=== PATIENT | female | born 1975 | race Caucasian/White ===

== ENCOUNTER 2018-06-25 05:37 | Day surgery (SDC) | payer OTHER ==
[2018-06-25] MEDS ORDERED: LIDOCAINE 2% (SDV) 5 ML INJ (06:26)
[2018-06-25] MEDS ORDERED: ROCURONIUM 50 MG INJ (06:26)
[2018-06-25] MEDS ORDERED: MIDAZOLAM 1 MG/ML 2 ML INJ (06:27)
[2018-06-25] MEDS ORDERED: GLYCOPYRROLATE 0.4 MG INJ (06:27)
[2018-06-25] MEDS ORDERED: PROPOFOL 20 ML (06:27)
[2018-06-25] MEDS ORDERED: FENTAnyl 50 MCG/ML VIAL (06:27)
[2018-06-25] MEDS ORDERED: NEOSTIGMINE 3 MG/3 ML SYRINGE (06:27)
[2018-06-25] MEDS ORDERED: ONDANSETRON 4 MG INJ (06:29)
[2018-06-25] MEDS ORDERED: DEXAMETHASONE 4 MG/ML 1 ML INJ (06:29)
[2018-06-25] MEDS ORDERED: hydrALAzine 20 MG INJ IV (06:30)
[2018-06-25] MEDS ORDERED: LABETALOL HCL 20MG INJ IV (06:30)
[2018-06-25] MEDS ORDERED: FENTAnyl 50 MCG/ML VIAL IV (06:30)
[2018-06-25] MEDS ORDERED: OXYCODONE/ACETAMINOPHEN (5/325) TAB PO (06:30)
[2018-06-25] MEDS ORDERED: morphine (1 MG/ML) 10ML SYRINGE IV ×3 (06:30)
[2018-06-25] MEDS ORDERED: DIPHENHYDRAMINE 50 MG INJ IV (06:30)
[2018-06-25] MEDS ORDERED: MEPERIDINE 25 MG INJ IV (06:30)
[2018-06-25] MEDS ORDERED: ATROPINE 1 MG/10 ML SYRINGE IV (06:30)
[2018-06-25] MEDS ORDERED: EPHEDrine SULFATE 50 MG/5 ML SYG IV (06:30)
[2018-06-25] MEDS ORDERED: HYDROmorphONE 1 MG/5 ML IV SYRINGE IV ×3 (06:30)
[2018-06-25] MEDS ORDERED: MIDAZOLAM 1 MG/ML 2 ML INJ IV (06:30)
[2018-06-25] MEDS ORDERED: BUPIVACAINE 0.5% (SDV) 30 ML INJ (06:47)
[2018-06-25] MEDS ORDERED: POLYMYXIN/BACITRACIN 1L IRRIG (06:48)
[2018-06-25] MEDS: LACTATED RINGER'S 1,000 ML IV (07:17)
[2018-06-25] MEDS ORDERED: SUCCINYLCHOLINE CHLORIDE 100 MG/5 ML SYG IV (07:40)
[2018-06-25] MEDS: CLINDAMYCIN 600 MG/D5W (PMX) 50 ML IVPB (08:00)
[2018-06-25] MEDS: POLYMYXIN/BACITRACIN 1L IRRIG IRR (08:05)
[2018-06-25] MEDS: BUPIVACAINE 0.5% (MPF) 30 ML INJ INJ (08:20)
[2018-06-25] MEDS: ONDANSETRON 4 MG INJ IV (09:26)
[2018-06-25] MEDS: FENTAnyl 50 MCG/ML VIAL IV (09:27)
[2018-06-25] MEDS: OXYCODONE/ACETAMINOPHEN (5/325) TAB PO (10:19)
[2018-06-25] MEDS ORDERED: morphine 2 MG INJ (11:15)
[2018-06-25] MEDS: morphine 2 MG INJ IV (11:30)
== END 2018-06-25 12:30 | disposition home or self-care (01) ==
LOC: SDS 05:37
DX: M21.612 Bunion of left foot (principal)
CPT/HCPCS: 28299; 73630-LT; 88304; 88311

== ENCOUNTER 2019-01-20 06:14 | Day surgery (SDC) | payer OTHER ==
[2019-01-20] MEDS ORDERED: FENTAnyl 50 MCG/ML VIAL (06:55)
[2019-01-20] MEDS ORDERED: LIDOCAINE 2% (SDV) 5 ML INJ (06:55)
[2019-01-20] MEDS ORDERED: MIDAZOLAM 1 MG/ML 2 ML INJ (06:55)
[2019-01-20] MEDS ORDERED: CLINDAMYCIN 900 MG/D5W (PMX) 50 ML IVPB (06:55)
[2019-01-20] MEDS ORDERED: PROPOFOL 20 ML (06:55)
[2019-01-20] MEDS ORDERED: DESFLURANE 15 MIN (07:00)
[2019-01-20] MEDS: POLYMYXIN/BACITRACIN 1L IRRIG (07:59)
[2019-01-20] MEDS: BUPIVACAINE 0.5% (SDV) 30 ML INJ (07:59)
[2019-01-20] MEDS ORDERED: FAMOTIDINE 20 MG INJ (08:03)
[2019-01-20] MEDS ORDERED: ONDANSETRON 4 MG INJ (08:03)
[2019-01-20] MEDS ORDERED: DEXAMETHASONE 4 MG/ML 5 ML INJ (08:03)
[2019-01-20] MEDS ORDERED: MEPERIDINE 25 MG INJ IV (08:30)
[2019-01-20] MEDS ORDERED: HYDROmorphONE 1 MG/5 ML IV SYRINGE IV (08:30)
[2019-01-20] MEDS ORDERED: OXYCODONE/ACETAMINOPHEN (5/325) TAB PO (08:30)
[2019-01-20] MEDS: HYDROmorphONE 1 MG/5 ML IV SYRINGE IV ×3 (08:58→09:13)
[2019-01-20] MEDS: ONDANSETRON 4 MG INJ IV ×2 (09:00→10:14)
[2019-01-20] MEDS: OXYCODONE/ACETAMINOPHEN (5/325) TAB PO (09:15)
[2019-01-20 10:15] LABS: ADD MAN DIFF? NO
[2019-01-20 10:16] LABS: WHITE BLOOD COUNT 7.2 10^3/ul (4.8-10.8)
[2019-01-20 10:16] LABS: ABNORMAL IP MESSAGE 1; BASOPHIL # 0.1 10^3/ul (0.0-0.1); EOSINOPHILS # 0.4 10^3/ul (0.0-0.5); EOSINOPHILS % 5.5 % (0.0-7.0); HEMATOCRIT 34.9 % (37.0-47.0); HEMOGLOBIN 11.6 g/dl (12.0-16.0); LYMPHOCYTES # 2.5 10^3/ul (0.8-2.9); LYMPHOCYTES % 34.5 % (15.0-51.0); MEAN CORPUSCULAR HEMOGLOBIN 30.8 pg (29.0-33.0); MEAN CORPUSCULAR HGB CONC 33.2 g/dl (32.0-37.0); MEAN CORPUSCULAR VOLUME 92.6 fl (82.0-101.0); MEAN PLATELET VOLUME 13.4 fl (7.4-10.4); MONOCYTE # 0.5 10^3/ul (0.3-0.9); MONOCYTES % 6.9 % (0.0-11.0); NEUTROPHIL # 3.8 10^3/ul (1.6-7.5); NEUTROPHILS % 51.8 % (39.0-77.0); PLATELET COUNT 187 10^3/UL (140-415); RED BLOOD COUNT 3.77 10^6/ul (4.20-5.40); RED CELL DISTRIBUTION WIDTH 14.4 % (11.5-14.5)
[2019-01-20 10:18] LABS: POSITIVE DIFF @See below
[2019-01-20 10:44] LABS: ALANINE AMINOTRANSFERASE 19 IU/L (13-69); ALBUMIN 3.7 g/dl (3.3-4.9); ALBUMIN/GLOBULIN RATIO 1.32; ALKALINE PHOSPHATASE 55 IU/L (42-121); ANION GAP 7 (5-13); ASPARTATE AMINO TRANSFERASE 17 IU/L (15-46); BILIRUBIN,INDIRECT 0.3 mg/dl (0-1.1); BILIRUBIN,TOTAL 0.3 mg/dl (0.2-1.3); BLOOD UREA NITROGEN 18 mg/dl (7-20); CALCIUM 8.9 mg/dl (8.4-10.2); CARBON DIOXIDE 23 mmol/L (21-31); CHLORIDE 111 mmol/L (97-110); CREATININE 0.89 mg/dl (0.44-1.00); Estimated GFR > 60 mL/min (>60); GLUCOSE 77 mg/dl (70-220); POTASSIUM 4.3 mmol/L (3.5-5.1); SODIUM 141 mmol/L (135-144); TOTAL PROTEIN 6.5 g/dl (6.1-8.1)
== END 2019-01-20 10:25 | disposition home or self-care (01) ==
LOC: SDS 06:14
DX: M21.611 Bunion of right foot (principal)
CPT/HCPCS: 28296; 80053; 85025; 88304; 88311